=== PATIENT | male | born 1950 | race Caucasian/White ===

== ENCOUNTER → 2019-03-06 | Outpatient (CLI) | payer OTHER, BC ==
--- NOTE | 2019-03-06 14:54 | 2DMMODE ---
[facility] [place] [address] 2 D/M-MODE ECHOCARDIOGRAM Name: JAYCEE GARCIA Room #: REG [facility]#: [id number] ������������� Admission: 03/06/19 ������������� Attend Phys: Germán Vincent MD Discharge: ��� ������������� ��� Date of : 46 Date of Service: 03/06/19 1454 �� Report #: [id number] �������� ��������������������������������������������[id number] THIS REPORT FOR: //name// APPROVED REPORT Study performed: 03/06/2019 13:06:28 EXAM: Comprehensive 2D, Doppler, and color-flow Echocardiogram Patient Location: Out-Patient Status: routine BSA: 2.13 HR: 53 bpm BP: 150/80 mmHg Indications Atrial Fibrillation Cardiomyopathy HTN 2D Dimensions RVDd: 35.17 mm IVSd: 10.39 (7-11mm) LVOT Diam: 23.63 (18-24mm) LVDd: 67.00 mm PWd: 9.81 (7-11mm) Ascending Ao: 34.59 (22-36mm) LVDs: 60.14 (25-40mm) Aortic Root: 40.72 mm Volumes Left Atrial Volume (Systole) Single Plane 4CH: 84.90 mL Single Plane 2CH: 97.82 mL LA ESV Index: 46.00 mL/m2 Aortic Valve AoV Peak Vernon.: 1.25 m/s AO Peak Gr.: 6.23 mmHg LVOT Max P.14 mmHg LVOT Max V: 0.73 m/s CELESTE Vmax: 2.56 cm2 Mitral Valve E/A Ratio: 0.8 MV Decel. Time: 301.29 ms MV E Max Vernon.: 0.53 m/s MV A Vernon.: 0.70 m/s MV PHT: 87.37 ms [facility] [address] [place] [address] 2 D/M-MODE ECHOCARDIOGRAM Name: JAYCEE GARCIA Room #: [facility]#: [id number] ������������� Admission: 03/06/19 ������������� Attend Phys: Germán Vincent MD Discharge: ��� ������������� ��� Date of : 46 Date of Service: 03/06/19 1454 �� Report #: [id number] �������� ��������������������������������������������[id number] IVRT: 143.02 ms Pulmonary Valve PV Peak Vernon.: 0.90 m/s PV Peak Gr.: 3.21 mmHg Pulmonary Vein P Vein S: 0.64 m/s P Vein A: 0.30 m/s P Vein D: 0.30 m/s P Vein A Dur.: 138.4 msec P Vein S/D Ratio: 2.13 Tricuspid Valve TR Peak Vernon.: 2.07 m/s RAP Estimate: 5.00 mmHg TR Peak Gr.: 17.14 mmHg PA Pressure: 22.00 mmHg Left Ventricle Left ventricle is moderate to severly dilated. There is global hypokinesis of the left ventricle. There is normal left ventricular wall thickness. Left ventricular systolic function is severely decreased. LVEF is 25-30%. Mild diastolic dysfunction is present (impaired relaxation pattern). Right Ventricle The right ventricle is normal size. The right ventricular systolic function is normal. Atria Left atrium is moderately dilated. Right atrium is at the upper limits of normal. Aortic Valve The aortic valve is normal in structure. Trace aortic regurgitation. There is no aortic valvular stenosis. Mitral Valve The mitral valve is normal in structure. Mild mitral regurgitation. Tricuspid Valve The tricuspid valve is normal in structure. Mild tricuspid regurgitation. Estimated PAP is 20-25mmHg. Pulmonic Valve The pulmonary valve is normal in structure. Mild pulmonic regurgitation. [facility] [address] [place] [address] 2 D/M-MODE ECHOCARDIOGRAM Name: JAYCEE GARCIA Room #: REG [facility]#: [id number] ������������� Admission: 03/06/19 ������������� Attend Phys: Germán Vincent MD Discharge: ��� ������������� ��� Date of : 46 Date of Service: 03/06/19 1454 �� Report #: [id number] �������� ��������������������������������������������[id number] [employer] [place] Aortic root is mildly dilated at 4.1cm. The ascending aorta is normal in size. IVC is normal in size and collapses >50% with inspiration. Pericardium There is no pericardial effusion. <Conclusion> Left ventricle is moderate to severly dilated. LVEF is 25-30%. There is global hypokinesis of the left ventricle. Left atrium is moderately dilated. Right atrium is at the upper limits of normal. The aortic valve is normal in structure. Trace aortic regurgitation. The mitral valve is normal in structure. Mild mitral regurgitation. The tricuspid valve is normal in structure. Mild tricuspid regurgitation. Estimated PAP is 20-25mmHg. The pulmonary valve is normal in structure. Mild pulmonic regurgitation. There is no pericardial effusion. ��������������������������������������������� <ELECTRONICALLY SIGNED> ���������������������������������������� By: Joshua Thomas MD ��������������������������������������������� 03/06/19 1454 1454 1454 Joshua Thomas MD /INF
--- NOTE | 2019-03-08 18:14 | EKG ---
[place] [id number] [address] [place] [address] ELECTROCARDIOGRAM REPORT Name: JAYCEE GARCIA Room #: [facility]#: [id number] ������������������ Admission: 03/06/19 ������������������ Attend Phys: Germán Vincent MD Discharge: ������������������ Date of : 46 Report #: [id number] ����������������������������������������������������������������� [id number] THIS REPORT FOR: //name// [facility] Test Date: 2019-03-06 Test Time: 13:11:45 Pat Name: JAYCEE GARCIA Department: Room: Gender: Welt Wheeler: Juarez DAWKINS : 1950 Requested By: Germán Vincent Order Number: [id number] MD: Demetri Akins Measurements Intervals Stuart Rate: 51 P: -4 SC: 168 QRS: -11 QRSD: 119 T: -29 QT: 454 QTc: 419 Interpretive Statements Sinus rhythm Ventricular premature complex Nonspecific ST segment abnormality No previous ECG available for comparison Electronically Signed On 03-08-2019 18:14:34 CDT by Demetri Akins [email or web address] ��������������������������������������������� <ELECTRONICALLY SIGNED> ���������������������������������������� By: Demetri Akins MD, LOCATED WITHIN [facility] ��������������������������������������������� 03/08/19 1814 1311 1311 Demetri Akins MD, FACC /EPI
== END ==
LOC: CV 12:44
DX: I08.8 Other rheumatic multiple valve diseases (principal); I10 Essential (primary) hypertension; I48.91 Unspecified atrial fibrillation; I42.9 Cardiomyopathy, unspecified